=== PATIENT | male | born 1960 | race Two or more races ===

== ENCOUNTER → 2022-09-23 | Emergency (ER) | payer BC, OTHER ==
[~2022-09-23] VITALS: Ht 185.4 cm; Wt 93.9 kg
[~2022-09-23] MED LIST: ACETAMINOPHEN 325 MG TAB PO ONE; ALBUAER3 IN; METH4PAK PO; methylPREDNISolone SOD SUCC 125 MG/2 ML VL IV ONE
[2022-09-23 11:05] LABS: Basophils # (auto) 0.1 10 ^3/uL (0-0.2); Basophils % (auto) 0.8 % (0.0-2.0); Eosinophils # (auto) 0.1 10 ^3/uL (0-0.8); Hematocrit 51.9 % (41.0-53.0); Hemoglobin 17.4 g/dL (13.5-17.5); Lymphocytes # (auto) 0.6 10 ^3/uL (0.4-5.4); Lymphocytes % (auto) 8.9 % (10.0-50.0); Mean Corpuscular Hemoglobin 31.8 pg (28.0-32.0); Mean Corpuscular Hgb Conc. 33.4 g/dL (32.0-36.0); Monocytes # (auto) 0.5 10 ^3/uL (0-1.3); Monocytes % (auto) 7.6 % (0.0-12.0); Neutrophils # (auto) 5.4 10 ^3/uL (1.6-8.6); Neutrophils % (auto) 81.7 % (37.0-80.0); Red Blood Cells 5.47 10^6/uL (4.5-5.90); Red Cell Distribution Width 12.8 % (11.8-14.3); White Blood Cell 6.6 10^3/uL (4.4-10.8)
[2022-09-23 12:00] LABS: Albumin 4.1 g/dL (3.4-5.0); BUN/Creatinine Ratio 12.5; Bilirubin, Total 0.6 mg/dL (0.2-1.0); Calcium 9.6 mg/dL (8.5-10.1); Magnesium 2.2 mg/dL (1.6-2.6); Potassium 4.1 mmol/L (3.5-5.1); Total Protein 8.1 g/dL (6.4-8.2)
[2022-09-23 16:05] VITALS: BP 134/67
[2022-09-23 16:44] LABS: Urine Specific Gravity 1.026 (1.001-1.035)
[2022-09-23 16:46] LABS: Urine Blood TRACE /uL (Negative)
[2022-09-23 20:08] LABS: Urine WBC 0-2 /hpf (0 - 3)
[2022-09-23 20:09] LABS: Urine Bacteria OCCL. /hpf (None Seen); Urine Hyaline Cast 0-2 /lpf (0 - 2); Urine Mucus MOD (None Seen)
== END | disposition home or self-care (01) ==
LOC: ER 09:20
DX: J10.1 Influenza due to other identified influenza virus with other respiratory manifestations (principal); R07.89 Other chest pain; E11.9 Type 2 diabetes mellitus without complications; I10 Essential (primary) hypertension; Z20.822 Contact with and (suspected) exposure to COVID-19
CPT/HCPCS: 36415; 71046; 71275; 80053; 81001; 83605; 83735; 83880; 84484; 85025; 85379; 87040; 87426; 87804; 93005; 96374; 99285; J2930

== ENCOUNTER 2024-03-28 17:04 | Emergency (ER) | payer OTHER ==
[~2024-03-28] VITALS: Ht 182.9 cm; Wt 100.8 kg
[~2024-03-28 17:04] MED LIST changes: -ACETAMINOPHEN 325 MG TAB PO ONE; -methylPREDNISolone SOD SUCC 125 MG/2 ML VL IV ONE
[2024-03-28 18:22] LABS: Basophils # (auto) 0 10 ^3/uL (0-0.2); Basophils % (auto) 0.5 % (0.0-2.0); Eosinophils # (auto) 0.2 10 ^3/uL (0-0.8); Eosinophils % (auto) 2.4 % (0.0-7.0); Hematocrit 45.3 % (41.0-53.0); Hemoglobin 15.2 g/dL (13.5-17.5); Lymphocytes # (auto) 2.2 10 ^3/uL (0.4-5.4); Lymphocytes % (auto) 24.3 % (10.0-50.0); Mean Corpuscular Hemoglobin 30.9 pg (28.0-32.0); Mean Corpuscular Hgb Conc. 33.5 g/dL (32.0-36.0); Mean Corpuscular Volume 92.2 fL (80.0-100.0); Monocytes # (auto) 0.7 10 ^3/uL (0-1.3); Monocytes % (auto) 7.3 % (0.0-12.0); Neutrophils % (auto) 65.5 % (37.0-80.0); Nucleated Red Blood Cells % 0.2 %; Red Blood Cells 4.91 10^6/uL (4.5-5.90); Red Cell Distribution Width 13.1 % (11.8-14.3); White Blood Cell 9.2 10^3/uL (4.4-10.8)
[2024-03-28 18:26] LABS: Phosphorus 3.3 mg/dL (2.4-5.1)
[2024-03-28 18:27] LABS: Alanine Aminotransferase 19 U/L (7-40); Albumin 4.6 g/dL (3.2-4.8); Alkaline Phosphatase 93 U/L (46-116); Anion Gap 8 (5-15); Aspartate Aminotransferase 9 U/L (13-40); BUN/Creatinine Ratio 8.8 (10.0-20.0); Blood Urea Nitrogen 7 mg/dL (9-23); Calcium 10.2 mg/dL (8.7-10.4); Carbon Dioxide 29 mmol/L (20-30); Chloride 105 mmol/L (98-107); Glucose 94 mg/dL (74-106); Magnesium 1.5 mg/dL (1.6-2.6); Potassium 3.7 mmol/L (3.5-5.1); Sodium 142 mmol/L (136-145); Total Protein 7.3 g/dL (5.7-8.2)
[2024-03-28 18:29] VITALS: BP 152/78; PULSE 88; RESP 17; TEMP 98.7; O2SAT 96
[2024-03-28 18:29] LABS: INR 1.05 (0.9-1.15); Partial Thromboplastin Time 26.2 SEC (24.5-34.5); Prothrombin Time 11.1 sec (9.3-11.8)
[2024-03-28] MEDS: THIAMINE HCL 100 MG TAB PO ONE (18:33)
[2024-03-28] MEDS: MULTIPLE VITAMINS W/ MINERALS TAB PO ONE (18:33)
[2024-03-28] MEDS: cloNIDine HCL 0.1 MG TAB PO ONE (18:34)
[2024-03-28] MEDS: LORazepam 2MG/ML-1ML VIAL IV ONE (18:49)
[2024-03-28] MEDS ORDERED: CHL10C PO (19:47)
[2024-03-28] MEDS ORDERED: CLON0.1T PO (19:47)
[2024-03-28] MEDS ORDERED: CHL25C PO (19:49)
[2024-03-28] MEDS ORDERED: LORA-1121 PO (19:50)
[2024-03-28] MEDS: MAGNESIUM SULFATE 1GM/100ML 100 ML IV ONE (19:53)
== END 2024-03-28 21:17 | disposition home or self-care (01) ==
LOC: ER 17:04
DX: I10 Essential (primary) hypertension (principal); F10.139 Alcohol abuse with withdrawal, unspecified; F17.210 Nicotine dependence, cigarettes, uncomplicated; Z79.899 Other long term (current) drug therapy; Y90.0 Blood alcohol level of less than 20 mg/100 ml
CPT/HCPCS: 36415; 71045; 80053; 80061; 83036; 83735; 83880; 84100; 84484; 85025; 85610; 85730; 93005; 96365; 96375; 99285; J2060; J3475

== ENCOUNTER 2025-03-25 11:25 | Emergency (ER) | payer OTHER ==
[~2025-03-25] VITALS: Ht 182.9 cm; Wt 96.2 kg
[~2025-03-25 11:25] MED LIST changes: +CLON0.1T PO
--- NOTE | 2025-03-25 14:19 | DVH ---
CLINICAL INDICATION: pain TECHNIQUE: XY R FOOT 3 VIEW XRAY Comparison: None FINDINGS/IMPRESSION: : Very subtle linear ossific density at the medial base of the 1st proximal phalanx corresponding to rosette parker's area of pain. This may represent a subtle avulsion injury. Clinical correlation advised.
--- NOTE | 2025-03-25 14:41 | ED.PDOC ---
History of Present Illness HPI Comments 64-year-old male presents to the ER with prior medical history of diabetes and the chief complain of lower extremity pain. Patient reports on having right big toe pain for with a past week, denied any trauma or injury to the area. Denies chills, fever, N/V/D, SOB, CP. No other associated symptoms, modifiers, recent injuries or sick contacts present at this time. Patient currently has a 4/10 pain with minor redness and swelling on his slight. Denies chills, fever, N/V/D, SOB, CP. No other associated symptoms, modifiers, recent injuries or sick contacts present at this time. Chief Complaint: Lower Extremity Time Seen by MD: 13:40 Primary Care Provider: Giovanna Clinton Notes: Nurses Notes, Medications, Allergies Allergies: Coded Allergies: NO KNOWN ALLERGIES (Unverified , 09/23/22) Home Meds Active Scripts Clonidine Hydrochloride (Clonidine Hcl) 0.1 Mg Tab, 0.1 MG PO BID for 10 Days, #20 TAB 0 Refills Prov:EDUARDO BAIG MD 03/28/24 Albuterol Sulfate (VENTOLIN MDI) 90 Mcg Ih, 90 MCG IN Q6HP PRN for 5 Days, #1 INH Prov:LEILA RIDDLE MD 09/23/22 Methylprednisolone (Medrol Dosepak) 4 Mg Jose Eduardo, 4 MG PO UD, #21 TAB UAD Prov:LEILA RIDDLE MD 09/23/22 Information Source: Patient Mode of Arrival: Ambulatory Severity: Moderate Timing: Days Duration: Since onset, Days Prehospital treatment: None Past Medical History PAST MEDICAL HISTORY: DM Surgical History: Denies all surgeries Family History Family History: Reviewed,noncontributory to illness, Unknown Social History Smoker: Unknown Alcohol: Unknown Drugs: Denies Drug Use Lives In: Home Constitutional: reports: others (Right foot great toe with redness and swelling); denies: chills, diaphoresis, fatigue, fever, malaise, sweats, weakness EENTM: denies: blurred vision, double vision, ear bleeding, ear discharge, ear drainage, ear pain, ear ringing, eye pain, eye redness, hearing loss, mouth pain, mouth swelling, nasal discharge, nose bleeding, nose congestion, nose pain, photophobia, tearing, throat pain, throat swelling, voice changes, others Respiratory: denies: cough, hemoptysis, orthopnea, SOB at rest, shortness of breath, SOB with excertion, stridor, wheezing, others Cardiovascular: denies: chest pain, dizzy spells, diaphoresis, Dyspnea on exertion, edema, irregular heart beat, left arm pain, lightheadedness, palpitations, PND, syncope, others Gastrointestinal: denies: abdomen distended, abdominal pain, blood streaked bowels, constipated, diarrhea, dysphagia, difficulty swallowing, hematemesis, melena, nausea, poor appetite, poor fluid intake, rectal bleeding, rectal pain, vomiting, others Genitourinary: denies: burning, dysuria, flank pain, frequency, hematuria, incontinence, penile discharge, penile sore, pain, testicle pain, testicle swelling, urgency, others Neurological: denies: dizziness, fainting, headache, left sided numbness, left sided weakness, numbness, paresthesia, pre-existing deficit, right sided numbness, right sided weakness, seizure, speech problems, tingling, tremors, weakness, others Musculoskeletal: denies: back pain, gout, joint pain, joint swelling, muscle pain, muscle stiffness, neck pain, others Integumetry: denies: bruises, change in color, change in hair/nails, dryness, laceration, lesions, lumps, rash, wounds, others Allergic/Immunocompromised: denies: Difficulty Healing, Frequent Infections, Hives, Itching, others Hematologic/Lymphatic: denies: anemia, blood clots, easy bleeding, easy bruising, swollen glands, others Endocrine: denies: excessive hunger, excessive sweating, excessive thirst, excessive urination, flushing, intolerance to cold, intolerance to heat, unexpl ained weight gain, unexplained weight loss, others Psychiatric: denies: anxiety, bipolar disorder, depression, hopeless, panic disorder, schizophrenia, sleepless, suicidal, others All Other Systems: Reviewed and Negative Physical Exam Exam Comments Base of the right great to has a redness with inflammation and no deformity. General Appearance: No Apparent Distress, Normal HEENT: Normal ENT Inspection, Pharynx Normal, TMs Normal Neck: Full Range of Motion, Non-Tender, Normal, Normal Inspection Respiratory: Chest Non-Tender, Lungs Clear, No Accessory Muscle Use, No Respiratory Distress, Normal Breath Sounds Cardiovascular: No Edema, No JVD, No Murmur, No Gallop, Normal Peripheral Pulses, Regular Rate/Rhythm Breast Exam: Deferred Gastrointestinal: No Organomegaly, Non Tender, No Pulsatile Mass, Normal Bowel Sounds, Soft Genitalia: Deferred Pelvic: Deferred Rectal: Deferred Extremities: No calf tenderness, Normal capillary refill, Normal inspection, Normal range of motion, Non-tender, No pedal edema Musculoskeletal : Apperance: Normal Neurologic: Alert, an/syq 13 nav/c2 operator II-XII nml as Tested, No Motor Deficits, Normal Affect, Normal Mood, No Sensory Deficits Cerebellar Function: Normal Reflexes: Normal Skin: Dry, Normal Color, Warm Lymphatic: No Adenopathy Was a procedure done? Was a procedure done?: No Differential Dx Considerations may include: fracture, cellulitis, gout, arthritis, dislocation, sprain, strain, contusion X-Ray, Labs, Meds, VS Vital Signs Date Time Temp Pulse Resp B/P (MAP) Pulse Ox O2 Delivery O2 Flow Rate FiO2 03/25/25 12:00 98.2 80 20 196/99 (131) 98 98.2 Lab Test 03/25/25 13:57 03/25/25 12:08 Range/Units Uric Acid 6.7 3.7-9.2 mg/dL POC Glucose 89 70-106 mg/dl Time of 1ST Reevaluation: 14:10 Reevaluation 1ST: Unchanged Patient Education/Counseling: Diagnosis, Treatment, Prognosis, Need For Follow Up Family Education/Counseling: No Family Present Additional Information pt has radiographic evidence of possibly a subtle avulsion fracture. his UA is normal, but there is mild redness in the area, so i will treat him for cellulitis and splint him for the fracture. he is stable to follow up with his PCP Departure 1 Departure Time of Disposition: 15:06 Impression: Primary Impression: Avulsion fracture Additional Impression: Cellulitis Qualified Codes: L03.115 - Cellulitis of right lower limb Disposition: HOME / SELF CARE / HOMELESS Condition: Good e-Prescriptions Cephalexin Monohydrate (Cephalexin) 500 Mg Tab 1 TAB PO QID, #40 TAB Prov: ALBA VELAZQUEZ MD 03/25/25 Discharged With: Self Critical Care Note Critical Care Time?: No Stability Stability form required: No I personally scribed for ALBA VELAZQUEZ MD ([email or web address]) on 03/25/25 at 14:41. Electronically submitted by Julio Hathaway ([email or web address]). ALBA VELAZQUEZ MD March 25, 2025 14:41
[2025-03-25] MEDS ORDERED: CEPH500T PO (15:09)
[2025-03-25 16:00] VITALS: BP 149/89; PULSE 75; RESP 20; TEMP 97.1; O2SAT 96
== END 2025-03-25 16:35 | disposition home or self-care (01) ==
LOC: ER 11:35
DX: S92.411A Displaced fracture of proximal phalanx of right great toe, initial encounter for closed fracture (principal); L03.115 Cellulitis of right lower limb; E11.9 Type 2 diabetes mellitus without complications; Z79.899 Other long term (current) drug therapy; X58.XXXA Exposure to other specified factors, initial encounter; Y93.89 Activity, other specified; Y92.89 Other specified places as the place of occurrence of the external cause; Y99.8 Other external cause status
CPT/HCPCS: 36415; 73630; 82947; 82962; 84550